=== PATIENT | female | born 1955 | race African-American/Black ===

== ENCOUNTER → 2016-07-11 | Outpatient (CLI) | payer MEDICARE, MEDICAID | LOC: OD 15:43 | PROVIDERS: ATTEND Physician Assistant | DX: M25.512 Pain in left shoulder (principal) ==

== ENCOUNTER → 2016-08-07 | Outpatient (CLI) | payer MEDICARE, MEDICAID | LOC: RAD 06:51 | PROVIDERS: ATTEND Family Medicine | DX: M54.2 Cervicalgia (principal); M47.892 Other spondylosis, cervical region; Z98.1 Arthrodesis status | CPT/HCPCS: 72125 ==

== ENCOUNTER → 2016-08-09 | Outpatient (CLI) | payer MEDICARE, MEDICAID | LOC: RAD 16:53 | PROVIDERS: ATTEND Orthopaedic Surgery | DX: M75.122 Complete rotator cuff tear or rupture of left shoulder, not specified as traumatic (principal) ==

== ENCOUNTER → 2016-09-04 | Outpatient (CLI) | payer MEDICARE, MEDICAID ==
--- NOTE | 2016-09-04 16:52 | RADIOLOGY REPORT (SQ) ---
EXAM DESCRIPTION: CT LUMBAR SPINE WITHOUT COMPLETED DATE/TIME: 09/04/2016 1:26 pm REASON FOR STUDY: LOW BACK PAIN M54.5 LOW BACK PAIN COMPARISON: None. TECHNIQUE: Axial images acquired through the lumbar spine without intravenous contrast. Images revi ewed with lung, soft tissue and bone windows. Reconstructed coronal and sagittal MPR images reviewed . All images stored on PACS. All CT scanners at this facility use dose modulation, iterative reconstruction, and/or weight based d osing when appropriate to reduce radiation dose to as low as reasonably achievable (ALARA). [facility]: Dose Right [facility]: CareDose [facility]: Dose Right [facility]: Teradose 4D [facility]: [employer]ics RADIATION DOSE: 6.61 mGy. LIMITATIONS: Hardware in the lower spine limits evaluation because of beam hardening artifact. FINDINGS: SEGMENTATION: Normal. No transitional anatomy. ALIGNMENT: Normal. VERTEBRAL BODIES: No fractures. No dislocation. No acute findings. DISCS: There is mild concentric disc bulge at L2-3. There is no significant central canal or foramin al stenosis. There is mild slightly left eccentric disc bulging at L3-4. There is no foraminal sten osis. Detail at the disc level at L4-5 and L5-S1 limited. Disc space implants at L4-5 and L5-S1. PEDICLES, TRANSVERSE PROCESSES: No fractures. No dislocation. No acute findings. FACETS, POSTERIOR ELEMENTS: Facet hypertrophy is present multiple levels. Together with the mild dis c bulging, this results in moderate central canal stenosis at L3-4. Laminectomy changes are present at L4 and L5. HARDWARE: Posterior rods secured by screws through the pedicles at L4, L5, and S1. VISUALIZED RIBS: No fractures. SOFT TISSUES: No significant or acute finding in adjacent soft tissues. OTHER: No other significant finding. IMPRESSION: Surgical changes, discs changes, spondylosis, and facet arthropathy as described. TECHNICAL DOCUMENTATION: JOB ID: [id number] Quality ID # [id number]: Final reports with documentation of one or more dose reduction techniques (e.g., Au tomated exposure control, adjustment of the mA and/or kV according to patient size, use of iterative reconstruction technique) 2010 [employer]- All Rights Reserved
== END ==
LOC: RAD 13:26
PROVIDERS: ATTEND Physician Assistant
DX: M54.5 Low back pain (principal)
CPT/HCPCS: 72131

== ENCOUNTER 2017-01-08 12:25 | Emergency (ER) | payer MEDICARE, MEDICAID ==
--- NOTE | 2017-01-08 12:47 | ER Document Report ---
ED General - General Chief Complaint: ETOH Abuse Stated Complaint: WEAKNESS Time Seen by Provider: 01/08/17 12:31 Mode of Arrival: Medic Information source: Patient Notes: 61-year-old female presents with concerns of alcohol intoxication. Patient denies any complaints herself states she drank rebound 4 beers this morning. States she normally drinks with her neighbor but her neighbor called police on her because she was "stupid" . pt wishes to go home TRAVEL OUTSIDE OF THE [place] IN LAST 30 DAYS: No - HPI Onset: Just prior to arrival Onset/Duration: Sudden Quality of pain: No pain Severity: None Pain Level: Denies Associated symptoms: None Exacerbated by: Denies Relieved by: Denies Similar symptoms previously: Yes Recently seen / treated by doctor: No - Related Data Allergies/Adverse Reactions: erythromycin base [Erythromycin Base] Allergy (Verified 02/20/15 13:25) Past Medical History - Social History Smoking Status: Never Smoker Cigarette use (# per day): No Chew tobacco use (# tins/day): No Smoking Education Provided: No Frequency of alcohol use: Heavy Family History: Arthritis, CAD, COPD, CVA, Hyperlipidemia, Hypertension, Malignancy - Past Medical History Cardiac Medical History: Reports: Hx Hypertension Endocrine Medical History: Reports: Hx Diabetes Mellitus Type 2 GI Medical History: Reports: Hx Gastroesophageal Reflux Disease Musculoskeltal Medical History: Reports Hx Arthritis, Reports Hx Musculoskeletal Trauma - Ankle fracture Psychiatric Medical History: Reports: Hx Anxiety, Hx Depression Traumatic Medical History: Reports: Hx Fractures - Ankle Past Surgical History: Reports: Hx Abdominal Surgery - gastric bypass and tummy tuck, Hx Cholecystectomy, Hx Hysterectomy, Hx Orthopedic Surgery - Backx5, right shoulder, left knee - Immunizations Hx Diphtheria, Pertussis, Tetanus Vaccination: No Review of Systems - Review of Systems Notes: REVIEW OF SYSTEMS: CONSTITUTIONAL : Denies fever, chills, or sweats. Denies recent illness. EENT: Denies eye, ear, throat, or mouth pain or symptoms. Denies nasal or sinus congestion or discharge. Denies throat, tongue, or mouth swelling or difficulty swallowing. CARDIOVASCULAR: Denies chest pain. Denies palpitations or racing or irregular heart beat. Denies ankle edema. RESPIRATORY: Denies cough, cold, or chest congestion. Denies shortness of breath, difficulty breathing, or wheezing. GASTROINTESTINAL: Denies abdominal pain or distention. Denies nausea, vomiting , or diarrhea. Denies blood in vomitus, stools, or per rectum. Denies black, tarry stools. Denies constipation. GENITOURINARY: Denies difficulty urinating, painful urination, burning, frequency, blood in urine, or discharge. FEMALE GENITOURINARY: Denies vaginal bleeding, heavy or abnormal periods, irregular periods. Denies vaginal discharge or odor. MUSCULOSKELETAL: Denies back or neck pain or stiffness. Denies joint pain or swelling. SKIN: Denies rash, lesions or sores. HEMATOLOGIC : Denies easy bruising or bleeding. LYMPHATIC: Denies swollen, enlarged glands. NEUROLOGICAL: Denies confusion or altered mental status. Denies passing out or loss of consciousness. Denies dizziness or lightheadedness. Denies headache. Denies weakness or paralysis or loss of use of either side. Denies problems with gait or speech. Denies sensory loss, numbness, or tingling. Denies seizures. PSYCHIATRIC: Denies anxiety or stress. Denies depression, suicidal ideation, or homicidal ideation. ALL OTHER SYSTEMS REVIEWED AND NEGATIVE. PHYSICAL EXAMINATION: GENERAL: Well-appearing, well-nourished and in no acute distress. HEAD: Atraumatic, normocephalic. EYES: Pupils equal round and reactive to light, extraocular movements intact, conjunctiva are normal. ENT: Nares patent, oropharynx clear without exudates. Moist mucous membranes. NECK: Normal range of motion, supple without lymphadenopathy LUNGS: Breath sounds clear to auscultation bilaterally and equal. No wheezes rales or rhonchi. HEART: Regular rate and rhythm without murmurs ABDOMEN: Soft, nontender, nondistended abdomen. No guarding, no rebound. No masses appreciated. Female : deferred Musculoskeletal: Normal range of motion, no pitting or edema. No cyanosis. NEUROLOGICAL: Cranial nerves grossly intact. Normal speech, normal gait. Normal sensory, motor exams PSYCH: Patient intoxicated SKIN: Warm, Dry, normal turgor, no rashes or lesions noted. Dictation was performed using [employer] voice recognition software Physical Exam - Vital signs Vitals: Pulse Resp BP Pulse Ox 83 20 120/83 97 01/08/17 12:30 01/08/17 12:30 01/08/17 12:30 01/08/17 12:30 Course - Re-evaluation Re-evalutation: 01/08/17 12:46 Patient is alert oriented she is moving her extremities with no difficulty she wishes to go home I asked her to at least stay for lab work since it is my job to rule out any life-threatening issue even though she just appears to be intoxicated 01/08/17 16:10 Patient at this time is quite alert oriented and clinically sober I will discharge home, they are attempting to find a ride Patient has no complaints After performing a Medical Screening Examination, I estimate there is LOW risk for INTRACRANIAL HEMORRHAGE, ISCHEMIC CVA, MALIGNANT DYSRHYTHMIA, ACUTE CORONARY SYNDROME, MENINGITIS, PULMONARY EMBOLISM, or SEPSIS thus I consider the discharge disposition reasonable. I have reevaluated this patient multiple times and no significant life threatening changes are noted. The patient and I have discussed the diagnosis and risks, and we agree with discharging home with close follow-up with the understanding that symptoms and presentations can change. We also discussed returning to the Emergency Department immediately if new or worsening symptoms occur. We have discussed the symptoms which are most concerning (e.g., changing or worsening pain, weakness, vomiting, fever) that necessitate immediate return. - Vital Signs Vital signs: Temp Pulse Resp BP Pulse Ox 97.9 F 79 20 139/99 H 98 01/08/17 15:50 01/08/17 15:50 01/08/17 15:50 01/08/17 15:50 01/08/17 15:50 - Laboratory Result Diagrams: 01/08/17 12:30 01/08/17 12:30 Laboratory results interpreted by me: 01/08/17 01/08/17 12:30 12:30 RBC 3.40 L Hgb 11.4 L Hct 33.5 L MCV 99 H MCH 33.6 H Seg Neuts % (Manual) 29 L Lymphocytes % (Manual) 57 H Abs Neuts (Manual) 1.2 L Sodium 136.4 L Discharge - Discharge Clinical Impression: Alcohol intoxication Qualifiers: Complication of substance-induced condition: uncomplicated Qualified Code(s): F10.920 - Alcohol use, unspecified with intoxication, uncomplicated Condition: Stable Disposition: HOME, SELF-CARE Instructions: Acute Alcohol Intoxication ([facility]) Referrals: EDIN JENSEN MD [Primary Care Provider] - Follow up tomorrow
[2017-01-08 13:01] LABS: HEMATOCRIT 33.5 % (36.0-47.0); HEMOGLOBIN 11.4 g/dL (12.0-15.5); HGB HCT DIFFERENCE 0.7; MEAN CORPUSCULAR HEMOGLOBIN 33.6 pg (27.0-33.4); MEAN CORPUSCULAR HGB CONC 34.1 g/dL (32.0-36.0); MEAN CORPUSCULAR VOLUME 99 fl (80-97); RED CELL DISTRIBUTION WIDTH 13.9 % (11.5-14.0); WHITE BLOOD COUNT 4.2 10^3/uL (4.0-10.5)
[2017-01-08 13:13] LABS: ALANINE AMINOTRANSFERASE 37 U/L (9-52); ALCOHOL 297 mg/dL (NONE DETECTED); ALKALINE PHOSPHATASE 77 U/L (38-126); ANION GAP 12 (5-19); ASPARTATE AMINO TRANSFERASE 32 U/L (14-36); BILIRUBIN,DIRECT 0.3 mg/dL (0.0-0.4); BILIRUBIN,TOTAL 0.6 mg/dL (0.2-1.3); BLOOD UREA NITROGEN 11 mg/dL (7-20); CALCIUM 8.8 mg/dL (8.4-10.2); CARBON DIOXIDE 24 mmol/L (22-30); CHLORIDE 100 mmol/L (98-107); CREATININE RESULT 0.58 mg/dL (0.52-1.25); GLUCOSE 82 mg/dL (75-110); POTASSIUM 4.6 mmol/L (3.6-5.0); SODIUM 136.4 mmol/L (137-145); TOTAL PROTEIN 6.5 g/dL (6.3-8.2)
[2017-01-08 13:31] LABS: BASOPHILS % (MANUAL) 1 % (0-2); EOSINOPHILS % (MANUAL) 3 % (0-6); LYMPHOCYTES % (MANUAL) 57 % (13-45); TOTAL CELLS COUNTED 100
[2017-01-08 15:55] VITALS: BP 139/99
== END 2017-01-08 15:56 | disposition home or self-care (01) ==
LOC: ER 12:25
DX: F10.120 Alcohol abuse with intoxication, uncomplicated (principal); I10 Essential (primary) hypertension; E11.9 Type 2 diabetes mellitus without complications; Z98.84 Bariatric surgery status; Z88.1 Allergy status to other antibiotic agents
CPT/HCPCS: 36415; 80053; 80307; 85025; 99284

== ENCOUNTER 2017-02-26 08:51 | Emergency (ER) | payer MEDICARE, MEDICAID ==
[2017-02-26] MEDS ORDERED: SUCRALFATE 1 GM TABLET PO ONE (09:26)
[2017-02-26] MEDS ORDERED: ONDANSETRON 4 MG TAB.RAPDIS PO ONE (09:26)
[2017-02-26] MEDS ORDERED: FAMOTIDINE 20 MG TABLET PO ONE (09:26)
--- NOTE | 2017-02-26 09:28 | ER Document Report ---
ED GI/ - General Mode of Arrival: Ambulatory Information source: Patient TRAVEL OUTSIDE OF THE [place] IN LAST 30 DAYS: No <JM ROSE - Last Filed: 02/26/17 13:10> <CONSUELO BOLAÑOS - Last Filed: 02/26/17 14:10> - General Chief Complaint: Abdominal Pain Stated Complaint: ABDOMINAL PAIN Time Seen by Provider: 02/26/17 09:26 Notes: Patient is a 61-year-old female who presents to the emergency department today with complaints of epigastric abdominal pain. Patient states she has a history of GERD and her pain today feels similar to her previous reflux. Patient eating sour patch kids upon entry into room. (JM ROSE) - Related Data Allergies/Adverse Reactions: erythromycin base [Erythromycin Base] Allergy (Verified 02/26/17 08:53) Home Medications: Current Home Medications Amlodipine Besylate 10 mg PO DAILY 02/26/17 [History] Cephalexin [Cephalexin 500 MG Capsule] 1 cap PO TID 02/26/17 [History] Duloxetine HCl 60 mg PO BID 02/26/17 [History] Metformin HCl 1,000 mg PO BID 02/26/17 [History] Past Medical History - General Information source: Patient - Social History Smoking Status: Never Smoker Cigarette use (# per day): No Chew tobacco use (# tins/day): No Frequency of alcohol use: Occasional Drug Abuse: None Lives with: Family Family History: Arthritis, CAD, COPD, CVA, Hyperlipidemia, Hypertension, Malignancy Patient has suicidal ideation: No Patient has homicidal ideation: No - Past Medical History Cardiac Medical History: Reports: Hx Hypertension Endocrine Medical History: Reports: Hx Diabetes Mellitus Type 2 GI Medical History: Reports: Hx Gastroesophageal Reflux Disease Musculoskeltal Medical History: Reports Hx Arthritis, Reports Hx Musculoskeletal Trauma - Ankle fracture Psychiatric Medical History: Reports: Hx Anxiety, Hx Depression Traumatic Medical History: Reports: Hx Fractures - Ankle Past Surgical History: Reports: Hx Abdominal Surgery - gastric bypass and tummy tuck, Hx Cholecystectomy, Hx Hysterectomy, Hx Orthopedic Surgery - Backx5, right shoulder, left knee - Immunizations Hx Diphtheria, Pertussis, Tetanus Vaccination: No <JM ROSE - Last Filed: 02/26/17 13:10> Review of Systems - Review of Systems Constitutional: No symptoms reported EENT: No symptoms reported Cardiovascular: No symptoms reported Respiratory: No symptoms reported Gastrointestinal: See HPI, Abdominal pain Genitourinary: No symptoms reported Female Genitourinary: No symptoms reported Musculoskeletal: No symptoms reported Skin: No symptoms reported Hematologic/Lymphatic: No symptoms reported Neurological/Psychological: No symptoms reported -: Yes All other systems reviewed and negative <JM ROSE - Last Filed: 02/26/17 13:10> Physical Exam <JM ROSE - Last Filed: 02/26/17 13:10> <CONSUELO BOLAÑOS - Last Filed: 02/26/17 14:10> - Vital signs Vitals: Temp Pulse Resp BP Pulse Ox 98.4 F 85 18 110/74 98 02/26/17 08:53 02/26/17 08:53 02/26/17 08:53 02/26/17 08:53 02/26/17 08:53 - Notes Notes: Physical Exam: General: Alert, appears well. HEENT: Normocephalic. Atraumatic. PERRL. Extraocular movements intact. Oropharynx clear. Neck: Supple. Non-tender. Respiratory: No respiratory distress. Clear and equal breath sounds bilaterally. Cardiovascular: Regular rate and rhythm. Abdominal: Mild epigastric tenderness to palpation. No distension. Normal Bowel Sounds. Back: Non-tender. No deformity or step off. Extremities: Moves all four extremities. Upper extremities: Normal inspection. Normal ROM. Lower extremities: Normal inspection. No edema. Normal ROM. Neurological: Normal cognition. AAOx4. Normal speech. Psychological: Normal affect. Normal Mood. Skin: Warm. Dry. Normal color. (JM ROSE) Course - Laboratory Result Diagrams: 02/26/17 10:01 02/26/17 10:01 <JM ROSE - Last Filed: 02/26/17 13:10> - Laboratory Result Diagrams: 02/26/17 10:01 02/26/17 10:01 <CONSUELO BOLAÑOS - Last Filed: 02/26/17 14:10> - Re-evaluation Re-evalutation: 02/26/17 Patient is a 61-year-old female with a history of alcohol abuse who comes in complaining of epigastric pain. Patient was given a GI cocktail and is eating sour patch kids in the room. Patient will be discharged home with medication for gastritis and is to follow-up with her primary doctor. She can also discuss referral to gastroenterology when she follows up with her doctor. Understands and agrees with plan. Stable for discharge. (CONSUELO BOLAÑOS ) - Vital Signs Vital signs: Temp Pulse Resp BP Pulse Ox 98.4 F 81 16 103/74 99 02/26/17 08:53 02/26/17 11:14 02/26/17 11:14 02/26/17 11:14 02/26/17 11:14 - Laboratory Laboratory results interpreted by me: 02/26/17 02/26/17 02/26/17 10:01 10:01 10:01 WBC 3.1 L RBC 3.37 L Hgb 11.2 L Hct 33.0 L MCV 98 H RDW 14.8 H Absolute Neutrophils 1.4 L Chloride 109 H Total Protein 5.9 L Urine Ketones TRACE H Urine Bilirubin SMALL H Urine Urobilinogen 2.0 H Ur Leukocyte Esterase MODERATE H Discharge <JM ROSE - Last Filed: 02/26/17 13:10> <CONSUELO BOLAÑOS - Last Filed: 02/26/17 14:10> - Discharge Clinical Impression: Gastritis Qualifiers: Gastritis type: unspecified gastritis Chronicity: acute Gastritis bleeding: without bleeding Qualified Code(s): K29.00 - Acute gastritis without bleeding Condition: Stable Disposition: HOME, SELF-CARE Instructions: Gastritis ([facility]), Reflux Disease (GERD) ([facility]) Additional Instructions: Please follow-up with your primary care doctor and a project financial analyst within the next 2 weeks. Prescriptions: Famotidine 20 mg PO BID #60 tablet Omeprazole 20 mg PO DAILY #30 capsule. Sucralfate [Carafate 1 gm Tablet] 1 gm PO ACHS #60 tablet Referrals: PHYLLIS COOLEY MD [Primary Care Provider] - Follow up in 3-5 days Scribe Attestation: 02/26/17 14:10 I personally performed the services described in the documentation, reviewed and edited the documentation which was dictated to the scribe in my presence, and it accurately records my words and actions. (CONSUELO BOLAÑOS) Scribe Documentation - Scribe Written by Scribe:: Gil Borges, 02/26/2017 1250 acting as scribe for :: Heather <JM ROSE - Last Filed: 02/26/17 13:10>
[2017-02-26 10:21] LABS: ABSOLUTE EOSINOPHILS # (AUTO) 0.2 10^3/uL (0.0-0.6); ABSOLUTE LYMPHOCYTES (AUTO) 1.2 10^3/uL (0.5-4.7); ABSOLUTE MONOCYTES (AUTO) 0.3 10^3/uL (0.1-1.4); ABSOLUTE NEUT (AUTO) 1.4 10^3/uL (1.7-8.2); BASOPHILS % (AUTO) 1.2 % (0-2); EOSINOPHILS % (AUTO) 5.4 % (0-6); HEMOGLOBIN 11.2 g/dL (12.0-15.5); HGB HCT DIFFERENCE 0.6; LYMPHOCYTES % (AUTO) 39.2 % (13-45); MEAN CORPUSCULAR HEMOGLOBIN 33.3 pg (27.0-33.4); MEAN CORPUSCULAR VOLUME 98 fl (80-97); MONOCYTES % (AUTO) 10.9 % (3-13); RED BLOOD COUNT 3.37 10^6/uL (3.72-5.28); RED CELL DISTRIBUTION WIDTH 14.8 % (11.5-14.0); SEGMENTED NEUTROPHILS % (AUTO) 43.3 % (42-78); WHITE BLOOD COUNT 3.1 10^3/uL (4.0-10.5)
[2017-02-26 10:29] LABS: APPEARANCE,URINE SLIGHTLY-CLOUDY; BILIRUBIN,URINE SMALL (NEGATIVE); GLUCOSE, URINE NEGATIVE (NEGATIVE); KETONES,URINE TRACE mg/dL (NEGATIVE); LEUKOCYTE ESTERASE,URINE MODERATE (NEGATIVE); NITRITE,URINE NEGATIVE (NEGATIVE); PROTEIN,URINE NEGATIVE (NEGATIVE); URINE SPECIFIC GRAVITY 1.034
[2017-02-26 10:44] LABS: ALANINE AMINOTRANSFERASE 34 U/L (9-52); ALBUMIN 3.6 g/dL (3.5-5.0); ALCOHOL < 10 mg/dL (NONE DETECTED); ALKALINE PHOSPHATASE 82 U/L (38-126); ANION GAP 11 (5-19); ASPARTATE AMINO TRANSFERASE 26 U/L (14-36); BILIRUBIN,DIRECT 0.3 mg/dL (0.0-0.4); BILIRUBIN,TOTAL 0.6 mg/dL (0.2-1.3); BLOOD UREA NITROGEN 20 mg/dL (7-20); CARBON DIOXIDE 22 mmol/L (22-30); CHLORIDE 109 mmol/L (98-107); CREATININE RESULT 0.65 mg/dL (0.52-1.25); GLUCOSE 90 mg/dL (75-110); LIPASE 182.6 U/L (23-300); POTASSIUM 4.2 mmol/L (3.6-5.0); SODIUM 141.6 mmol/L (137-145); TOTAL PROTEIN 5.9 g/dL (6.3-8.2)
[2017-02-26 11:15] VITALS: BP 103/74
== END 2017-02-26 11:18 | disposition home or self-care (01) ==
LOC: ER 08:51
DX: K29.00 Acute gastritis without bleeding (principal); K21.9 Gastro-esophageal reflux disease without esophagitis; R10.9 Unspecified abdominal pain; R10.13 Epigastric pain; Z79.899 Other long term (current) drug therapy
CPT/HCPCS: 99284; 36415; 87086; 80307; 83690; 85025; 80053; 81001; A9270 ×3; S0119

== ENCOUNTER → 2017-03-10 | Outpatient (CLI) | payer MEDICARE, MEDICAID ==
--- NOTE | 2017-03-10 11:28 | RADIOLOGY REPORT (SQ) ---
EXAM DESCRIPTION: U/S ABDOMEN LIMITED W/O DOP COMPLETED DATE/TIME: 03/10/2017 10:12 am REASON FOR STUDY: K66.8 OTHER SPECIFIED DISORDERS OF PERITONEUM K66.8 OTHER SPECIFIED DISORDERS OF PERITONEUM COMPARISON: None. TECHNIQUE: Dynamic and static grayscale images acquired of the abdomen and recorded on PACS. Additio nal selected color Doppler and spectral images recorded. LIMITATIONS: None. FINDINGS: PANCREAS: No masses. Visualized pancreatic duct normal caliber. LIVER: No masses. Echotexture normal. LIVER VASCULATURE: Normal directional flow of the main portal vein and hepatic veins. GALLBLADDER: Surgically absent. ULTRASOUND-DETECTED WHITMAN'S SIGN: Not applicable. INTRAHEPATIC DUCTS AND COMMON DUCT: CBD and intrahepatic ducts normal caliber. No filling defects. INFERIOR VENA CAVA: Normal flow. AORTA: No aneurysm. RIGHT KIDNEY: Normal size. Normal echogenicity. No solid or suspicious masses. No hydronephrosis. No calcifications. PERITONEAL AND RIGHT PLEURAL SPACE: No ascites or effusions. OTHER: In the left lateral abdomen, corresponding to a palpable area, there is and echogenic 1.5 cm r elatively superficial subcutaneous lesion. Roughly ovoid configuration. Nonspecific but potentially related to a lipoma. IMPRESSION: 1. Normal right upper quadrant structures allowing for status post remote prior cholecys tectomy. 2. Echogenic lesion in the superficial subcutaneous tissues in the region of interest, pal pable abnormality left lateral abdomen. Nonspecific. Potentially a lipoma. If clinically suspiciou s, focused MRI could be considered to further assess. TECHNICAL DOCUMENTATION: JOB ID: [id number] [employer]- All Rights Reserved
== END ==
LOC: RAD 08:25
PROVIDERS: ATTEND Physician Assistant
DX: K66.8 Other specified disorders of peritoneum (principal)
CPT/HCPCS: 76705

== ENCOUNTER → 2017-04-25 | Outpatient (CLI) | payer MEDICARE, MEDICAID ==
--- NOTE | 2017-04-25 12:23 | RADIOLOGY REPORT (SQ) ---
EXAM DESCRIPTION: CHEST PA/LAT COMPLETED DATE/TIME: 04/25/2017 8:36 am REASON FOR STUDY: R05 COUGH I88.9 LYMPHADENITIS COMPARISON: None. EXAM PARAMETERS: NUMBER OF VIEWS: two views TECHNIQUE: Digital Frontal and Lateral radiographic views of the chest acquired. RADIATION DOSE: NA LIMITATIONS: none FINDINGS: LUNGS AND PLEURA: No opacities, masses or pneumothorax. No pleural effusion. MEDIASTINUM AND HILAR STRUCTURES: No masses or contour abnormalities. HEART AND VASCULAR STRUCTURES: Heart normal size. No evidence for failure. BONES: No acute findings. HARDWARE: None in the chest. OTHER: No other significant finding. IMPRESSION: NO SIGNIFICANT RADIOGRAPHIC FINDING IN THE CHEST. TECHNICAL DOCUMENTATION: JOB ID: [id number] [employer]- All Rights Reserved
--- NOTE | 2017-04-25 13:30 | RADIOLOGY REPORT (SQ) ---
EXAM DESCRIPTION: U/S EXTREMITY NONVASCULAR COMP COMPLETED DATE/TIME: 04/25/2017 9:25 am REASON FOR STUDY: I88.9 NONSPECIFIC LYMPHADENITIS, UNSPECIFIED I88.9 NONSPECIFIC LYMPHADENITIS, UNS PECIFIED R05 COUGH COMPARISON: None. TECHNIQUE: Dynamic and static grayscale images acquired of the localized site of clinical concern an d recorded on PACS. Additional selected color Doppler and spectral images recorded. SITE OF CONCERN: Axilla. LIMITATIONS: None. FINDINGS: SKIN AND SUBCUTANEOUS TISSUES: No masses. No fluid collections. No edema. No foreign cate s. DEEP SOFT TISSUES/MUSCLES: No masses. No fluid collections. No edema. VASCULAR: No increased or decreased vascularity. No occlusions. OTHER: No other significant finding. IMPRESSION: NO SOFT TISSUE MASS, FLUID COLLECTION, OR FOREIGN BODY. TECHNICAL DOCUMENTATION: JOB ID: [id number] [employer]- All Rights Reserved
== END ==
LOC: RAD 08:36
PROVIDERS: ATTEND Physician Assistant
DX: I88.9 Nonspecific lymphadenitis, unspecified (principal); R05 Cough
CPT/HCPCS: 71046; 76881

== ENCOUNTER → 2017-07-24 | Outpatient (CLI) | payer MEDICARE, MEDICAID ==
--- NOTE | 2017-07-24 11:40 | RADIOLOGY REPORT (SQ) ---
EXAM DESCRIPTION: CHEST PA/LATERAL COMPLETED DATE/TIME: 07/24/2017 9:51 am REASON FOR STUDY: COUGH COMPARISON: 04/25/2017 EXAM PARAMETERS: NUMBER OF VIEWS: two views TECHNIQUE: Digital Frontal and Lateral radiographic views of the chest acquired. RADIATION DOSE: NA LIMITATIONS: none FINDINGS: LUNGS AND PLEURA: No opacities, masses or pneumothorax. No pleural effusion. MEDIASTINUM AND HILAR STRUCTURES: No masses or contour abnormalities. HEART AND VASCULAR STRUCTURES: Heart normal size. No evidence for failure. BONES: No acute findings. HARDWARE: None in the chest. OTHER: No other significant finding. IMPRESSION: NO SIGNIFICANT RADIOGRAPHIC FINDING IN THE CHEST. TECHNICAL DOCUMENTATION: JOB ID: [id number] [employer]- All Rights Reserved Reading location - IP/workstation name: [email or web address]
== END ==
LOC: OD 09:41
PROVIDERS: ATTEND Family Medicine
DX: R05 Cough (principal)
CPT/HCPCS: 71046

== ENCOUNTER → 2017-11-12 | Outpatient (CLI) | payer MEDICARE, MEDICAID ==
[2017-11-12 17:23] LABS: ABSOLUTE EOSINOPHILS # (AUTO) 0.1 10^3/uL (0.0-0.6); ABSOLUTE LYMPHOCYTES (AUTO) 1.6 10^3/uL (0.5-4.7); ABSOLUTE MONOCYTES (AUTO) 0.3 10^3/uL (0.1-1.4); BASOPHILS % (AUTO) 1.5 % (0-2); HEMATOCRIT 40.7 % (36.0-47.0); HEMOGLOBIN 13.4 g/dL (12.0-15.5); LYMPHOCYTES % (AUTO) 51.9 % (13-45); MEAN CORPUSCULAR HEMOGLOBIN 33.9 pg (27.0-33.4); MEAN CORPUSCULAR HGB CONC 32.9 g/dL (32.0-36.0); MEAN CORPUSCULAR VOLUME 103 fl (80-97); MONOCYTES % (AUTO) 10.2 % (3-13); PLATELET COUNT 318 10^3/uL (150-450); RED BLOOD COUNT 3.96 10^6/uL (3.72-5.28); RED CELL DISTRIBUTION WIDTH 14.6 % (11.5-14.0); SEGMENTED NEUTROPHILS % (AUTO) 33.4 % (42-78); TOTAL CELLS COUNTED % (AUTO) 100 %; WHITE BLOOD COUNT 3.1 10^3/uL (4.0-10.5)
[2017-11-12 17:43] LABS: FREE T4 (FREE THYROXINE) 1.08 ng/dL (0.78-2.19)
[2017-11-12 17:57] LABS: THYROID STIMULATING HORMONE 1.34 uIU/mL (0.47-4.68)
== END ==
LOC: OD 16:19
PROVIDERS: ATTEND Physician Assistant Medical
DX: R06.02 Shortness of breath (principal); R53.83 Other fatigue; I48.92 Unspecified atrial flutter
CPT/HCPCS: 36415; 84436; 84439; 84443; 85025

== ENCOUNTER → 2018-06-26 | Outpatient (CLI) | payer MEDICARE, MEDICAID ==
--- NOTE | 2018-06-26 09:13 | WOMENS IMAGING REPORT ---
EXAM DESCRIPTION: U/S ABDOMEN TOTAL COMPLETED DATE/TIME: 06/26/2018 7:56 am REASON FOR STUDY: R11.0 NAUSEA,R10.13 EPIGASTRIC PAIN Z12.31 ENCNTR SCREEN MAMMOGRAM FOR MALIGNANT NEOPLASM OF BARBY R11.0 NAUSEA COMPARISON: 03/10/2017 TECHNIQUE: Dynamic and static grayscale images acquired of the abdomen and recorded on PACS. Additio nal selected color Doppler and spectral images recorded. Note: Study does not meet criteria for complete doppler/duplex scan LIMITATIONS: None. FINDINGS: PANCREAS: The head of the pancreas is of normal echogenicity. The body and tail are obsc ured by overlying bowel gas. LIVER: The liver measures 16.5 cm in length, normal size. No masses. Echotexture normal. LIVER VASCULATURE: Normal directional flow of the main portal vein and hepatic veins. GALLBLADDER: Prior cholecystectomy. ULTRASOUND-DETECTED WHITMAN'S SIGN: Negative. INTRAHEPATIC DUCTS AND COMMON DUCT: CBD measures 6.6 mm in a post cholecystectomy patient. The intr ahepatic ducts normal caliber. No filling defects. INFERIOR VENA CAVA: Limited visualization due to overlying bowel gas. Normal flow. AORTA: The proximal and mid segments of the abdominal aorta are patent. The distal abdominal aorta is obscured by overlying bowel. RIGHT KIDNEY: The right kidney measures 10.6 x 3.8 x 5.1 cm, normal size. Normal echogenicity. N o solid or suspicious masses. No hydronephrosis. No calcifications. LEFT KIDNEY: The left kidney measures 8.7 x 4.8 x 4.8 cm, normal size. Normal echogenicity. No s olid or suspicious masses. No hydronephrosis. No calcifications. SPLEEN: The spleen measures 7.8 cm in length, normal size. No solid masses. PERITONEAL AND PLEURAL SPACES: No ascites or effusions. OTHER: No other significant finding. IMPRESSION: 1. The pancreas, abdominal aorta and inferior vena cava are suboptimally visualized due to overlying bowel gas. 2. Prior cholecystectomy. TECHNICAL DOCUMENTATION: JOB ID: [id number] [employer]- All Rights Reserved Reading location - IP/workstation name: [email or web address]
--- NOTE | 2018-06-26 15:43 | WOMENS IMAGING REPORT ---
EXAM DESCRIPTION: 3D SCREENING MAMMO BILAT COMPLETED DATE/TIME: 06/26/2018 7:36 am REASON FOR STUDY: Z12.31 ENCOUNTER FOR SCREENING MAMMOGRAM FOR MALIGNANT NEOPLASM OF BREAST Z12.31 ENCNTR SCREEN MAMMOGRAM FOR MALIGNANT NEOPLASM OF BARBY R11.0 NAUSEA COMPARISON: None. TECHNIQUE: Standard craniocaudal and mediolateral oblique views of each breast recorded using digita l acquisition and breast tomosynthesis. LIMITATIONS: None. FINDINGS: No masses, calcifications or architectural distortion. No areas of suspicion. Read with the assistance of CAD. .[facility] - R2 Cenova Version 1.3 .[facility] - R2 Cenova Version 2.1 .[facility] - R2 Cenova Version 2.4 .[facility] - R2 Cenova Version 2.4 .[facility] - R2 Nut Cracker Version 9.2 IMPRESSION: NORMAL MAMMOGRAM. BIRADS 1. BREAST DENSITY: b. There are scattered areas of fibroglandular density. BIRAD: 1 NEGATIVE RECOMMENDATION: ROUTINE SCREENING COMMENT: The patient has been notified of the results by letter per SA requirements. Additional no tification policies are in place for contacting patient with suspicious or incomplete findings. Quality ID #[id number]: The [employer] recommends an annual screening mammogram for women aged 40 years or over. This facility utilizes a reminder system to ensure that all patients receive reminder letters, and/or direct phone calls for appointments. This includes reminders for routine scr eening mammograms, diagnostic mammograms, or other Breast Imaging Interventions when appropriate. Th is patient will be placed in the appropriate reminder system. The [employer] (ACR) has developed recommendations for screening MRI of the breast s in certain patient populations, to be used in conjunction with mammography. Breast MRI surveillanc e may be appropriate for women with more than 20% lifetime risk of developing breast cancer as deter mined by genetic testing, significant family history of the disease, or history of mantle radiation f or Hodgkins Disease. ACR Practice Guidelines 2008. DBT Technology DBT is a type of tomographic mammography. With conventional mammography, overlapping breast tissue ma y make lesions difficult to detect, even with good compression. DBT uses an x-ray tube that rotates a round the breast, taking images at different angles. These images are then combined to create thin sl ices of the breast that the radiologist can view as a 3D reconstruction. The [employer] unit can perform full-field digital mammograms (2D imaging); or DBT (3D imaging); or both, in a combination mode that quickly performs both the mammogram and the tomosynthesis scan while the breast is still compressed. PQRS 6045F: Fluoroscopic imaging is not utilized for breast tomosynthesis. TECHNICAL DOCUMENTATION: FINDING NUMBER: (1) ASSESSMENT: (1) JOB ID: [id number] [employer]- All Rights Reserved Reading location - IP/workstation name: [email or web address]
== END ==
LOC: WI 07:32
PROVIDERS: ATTEND Physician Assistant
DX: Z12.31 Encounter for screening mammogram for malignant neoplasm of breast (principal); R11.0 Nausea
CPT/HCPCS: 76700; 77063; 77067

== ENCOUNTER → 2018-08-06 | Outpatient (CLI) | payer MEDICARE, MEDICAID ==
--- NOTE | 2018-08-06 11:33 | RADIOLOGY REPORT (SQ) ---
EXAM DESCRIPTION: CT ABD/PELVIS WITH IV ORAL COMPLETED DATE/TIME: 08/06/2018 10:46 am REASON FOR STUDY: RUQ PAIN/ EPIGASTRIC PAIN R10.11 RIGHT UPPER QUADRANT PAIN R10.13 EPIGASTRIC AMEYA N COMPARISON: 03/18/2016 TECHNIQUE: CT scan of the abdomen and pelvis performed using helical scanning technique with dynamic intravenous contrast injection. Oral contrast. Images reviewed with lung, soft tissue, and bone win dows. Reconstructed coronal and sagittal MPR images reviewed. Delayed images for evaluation of the ur inary system also acquired. All images stored on PACS. All CT scanners at this facility use dose modulation, iterative reconstruction, and/or weight based d osing when appropriate to reduce radiation dose to as low as reasonably achievable (ALARA). [facility]: Dose Right [facility]: CareDose [facility]: Dose Right [facility]: Teradose 4D [facility]: [facility] CONTRAST TYPE AND DOSE: contrast/concentration: Isovue 350.00 mg/ml; Total Contrast Delivered: 75.0 ml; Total Saline Delivered: 67.0 ml RENAL FUNCTION: Creatinine 0.7 RADIATION DOSE: CT Rad equipment meets quality standard of care and radiation dose reduction techniq ues were employed. CTDIvol: 4.5 - 5.3 mGy. DLP: 487 mGy-cm.. LIMITATIONS: None. FINDINGS: LOWER CHEST: No significant findings. No nodules or infiltrates. LIVER: Normal size. No masses. No dilated ducts. SPLEEN: Normal size. No focal lesions. PANCREAS: No masses. No significant calcifications. No adjacent inflammation or peripancreatic fluid collections. Pancreatic duct not dilated. GALLBLADDER: Surgically absent. ADRENAL GLANDS: No significant masses or asymmetry. RIGHT KIDNEY AND URETER: No solid masses. No significant calcifications. No hydronephrosis or hyd roureter. LEFT KIDNEY AND URETER: No solid masses. No significant calcifications. No hydronephrosis or hydr oureter. AORTA AND VESSELS: No aneurysm. No dissection. Renal arteries, SMA, celiac without stenosis. RETROPERITONEUM: No retroperitoneal adenopathy, hemorrhage or masses. BOWEL AND PERITONEAL CAVITY: Gastric bypass. No masses or inflammatory changes. No free fluid or per itoneal masses. APPENDIX: Normal. PELVIS: No mass. No free fluid. Normal bladder. ABDOMINAL WALL: No masses. No hernias. BONES: Posterior rods from L4-S1 with screws through the pedicles. OTHER: No other significant finding. IMPRESSION: No acute abnormality in the abdomen or pelvis. Findings as described. TECHNICAL DOCUMENTATION: JOB ID: [id number] Quality ID # [id number]: Final reports with documentation of one or more dose reduction techniques (e.g., Au tomated exposure control, adjustment of the mA and/or kV according to patient size, use of iterative reconstruction technique) 2010 [employer]- All Rights Reserved Reading location - IP/workstation name: [email or web address]
== END ==
LOC: RAD 07:48
PROVIDERS: ATTEND Internal Medicine Gastroenterology
DX: R10.11 Right upper quadrant pain (principal); R10.13 Epigastric pain
CPT/HCPCS: 74177; 82565

== ENCOUNTER → 2019-03-19 | Outpatient (CLI) | payer MEDICARE, MEDICAID ==
[2019-03-19 15:15] LABS: ABSOLUTE EOSINOPHILS # (AUTO) 0.2 10^3/uL (0.0-0.6); ABSOLUTE LYMPHOCYTES (AUTO) 1.7 10^3/uL (0.5-4.7); ABSOLUTE MONOCYTES (AUTO) 0.3 10^3/uL (0.1-1.4); ABSOLUTE NEUT (AUTO) 1.2 10^3/uL (1.7-8.2); BASOPHILS % (AUTO) 1.3 % (0-2); EOSINOPHILS % (AUTO) 5.2 % (0-6); HEMATOCRIT 37.5 % (36.0-47.0); HEMOGLOBIN 12.8 g/dL (12.0-15.5); LYMPHOCYTES % (AUTO) 49.8 % (13-45); MEAN CORPUSCULAR HEMOGLOBIN 33.9 pg (27.0-33.4); MEAN CORPUSCULAR HGB CONC 34.1 g/dL (32.0-36.0); MEAN CORPUSCULAR VOLUME 99 fl (80-97); MONOCYTES % (AUTO) 8.9 % (3-13); PLATELET COUNT 228 10^3/uL (150-450); RED BLOOD COUNT 3.77 10^6/uL (3.72-5.28); RED CELL DISTRIBUTION WIDTH 14.9 % (11.5-14.0); SEGMENTED NEUTROPHILS % (AUTO) 34.8 % (42-78); TOTAL CELLS COUNTED % (AUTO) 100 %; WHITE BLOOD COUNT 3.3 10^3/uL (4.0-10.5)
[2019-03-19 15:36] LABS: ALBUMIN 4.4 g/dL (3.5-5.0); ALKALINE PHOSPHATASE 83 U/L (38-126); ANION GAP 8 (5-19); ASPARTATE AMINO TRANSFERASE 25 U/L (14-36); BILIRUBIN,DIRECT 0.1 mg/dL (0.0-0.4); BILIRUBIN,TOTAL 0.5 mg/dL (0.2-1.3); BLOOD UREA NITROGEN 15 mg/dL (7-20); CALCIUM 9.7 mg/dL (8.4-10.2); CARBON DIOXIDE 28 mmol/L (22-30); CHLORIDE 103 mmol/L (98-107); GLUCOSE 111 mg/dL (75-110); POTASSIUM 4.3 mmol/L (3.6-5.0); TOTAL PROTEIN 7.8 g/dL (6.3-8.2)
--- NOTE | 2019-03-19 15:51 | RADIOLOGY REPORT (SQ) ---
EXAM DESCRIPTION: CHEST 2 VIEWS COMPLETED DATE/TIME: 03/19/2019 3:15 pm REASON FOR STUDY: R05 COUGH COMPARISON: 04/15/2017 EXAM PARAMETERS: NUMBER OF VIEWS: two views TECHNIQUE: Digital Frontal and Lateral radiographic views of the chest acquired. RADIATION DOSE: NA LIMITATIONS: none FINDINGS: LUNGS AND PLEURA: No opacities, masses or pneumothorax. No pleural effusion. MEDIASTINUM AND HILAR STRUCTURES: No masses or contour abnormalities. HEART AND VASCULAR STRUCTURES: Heart normal size. No evidence for failure. BONES: No acute findings. HARDWARE: Cervical fusion hardware. Cholecystectomy clips. OTHER: No other significant finding. IMPRESSION: NO ACUTE RADIOGRAPHIC FINDING IN THE CHEST. TECHNICAL DOCUMENTATION: JOB ID: [id number] [employer]- All Rights Reserved Reading location - IP/workstation name: [email or web address]
== END ==
LOC: RAD 14:49
PROVIDERS: ATTEND Physician Assistant
DX: R05 Cough (principal)
CPT/HCPCS: 36415; 71046; 80053; 85025

== ENCOUNTER 2019-07-01 22:57 | Emergency (ER) | payer MEDICARE, MEDICAID ==
[2019-07-01] MEDS ORDERED: IBUPROFEN 600 MG TABLET PO ONE (23:01)
[2019-07-01] MEDS ORDERED: CEPHALEXIN 500 MG CAPSULE PO ONE (23:01)
[2019-07-01] MEDS ORDERED: HYDROCODONE/ACETAMINOPHEN 5-325 MG TABLET PO ONE (23:01)
[2019-07-01] MEDS ORDERED: DIPH/PERTUSS(ACELL)/TETANUS VAC/PF 0.5 ML SYR (>=10YO) IM ONE (23:01)
--- NOTE | 2019-07-01 23:03 | ER Document Report ---
ED Medical Screen (RME) - General Chief Complaint: Hand Injury Stated Complaint: RIGHT HAND INJURY Time Seen by Provider: 07/01/19 23:00 Primary Care Provider: OLGA LUO MD [Primary Care Provider] - Follow up as needed Notes: HPI: 63-year-old female who is left-hand dominant presenting with a right fifth finger injury that occurred yesterday evening. Patient states the fifth finger was crushed in a door when her son close the door on it. She complains of a laceration over the volar aspect of the finger with significant pain. She reports difficulty flexing and extending the finger now because of swelling. Patient states she is not up-to-date on her tetanus vaccination. Patient denies other complaints I have greeted and performed a rapid initial assessment of this patient. A comprehensive ED assessment and evaluation of the patient, analysis of test results and completion of the medical decision making process will be conducted by additional ED providers PHYSICAL EXAMINATION: GENERAL: Well-appearing, well-nourished and in moderate acute distress. HEAD: Atraumatic, normocephalic. EXTREMITIES: Moderate soft tissue swelling to the right fifth finger. There is a visible laceration on the volar pad over the medial phalange and proximal phalange of the right fifth finger. Some difficulty with flexion extension. NEUROLOGICAL: No focal neurological deficits. Moves all extremities spontaneou sly and on command. PSYCH: Normal mood, normal affect. SKIN: Warm, Dry, normal turgor TRAVEL OUTSIDE OF THE [place] IN LAST 30 DAYS: No - Related Data Allergies/Adverse Reactions: erythromycin base [Erythromycin Base] Allergy (Verified 02/26/17 08:53) Past Medical History - Past Medical History Cardiac Medical History: Reports: Hx Hypertension Endocrine Medical History: Reports: Hx Diabetes Mellitus Type 2 Renal/ Medical History: Denies: Hx Peritoneal Dialysis GI Medical History: Reports: Hx Gastroesophageal Reflux Disease Musculoskeltal Medical History: Reports Hx Arthritis, Reports Hx Musculoskeletal Trauma - Ankle fracture Psychiatric Medical History: Reports: Hx Anxiety, Hx Depression Traumatic Medical History: Reports: Hx Fractures - Ankle Past Surgical History: Reports: Hx Abdominal Surgery - gastric bypass and tummy tuck, Hx Cholecystectomy, Hx Hysterectomy, Hx Orthopedic Surgery - Backx5, right shoulder, left knee - Immunizations Hx Diphtheria, Pertussis, Tetanus Vaccination: No Doctor's Discharge - Discharge Referrals: OLGA LUO MD [Primary Care Provider] - Follow up as needed
--- NOTE | 2019-07-01 23:28 | RADIOLOGY REPORT (SQ) ---
EXAM DESCRIPTION: XR FINGERS COMPLETED DATE/TME: 07/01/2019 23:00 CLINICAL HISTORY: 63 years, Female, crushed 5th finger in door COMPARISON: None. NUMBER OF VIEWS: 3 TECHNIQUE: 3 view right hand LIMITATIONS: None. FINDINGS: Comminuted displaced fracture of the proximal portion of the middle phalanx of the fifth digit. There are overriding fracture fragments with extensive soft tissue swelling. No dislocation. Osteopenia. Degenerative change of the hand and wrist. IMPRESSION: Comminuted, displaced fracture of the fifth digit as above copyright 2010 [employer]- All Rights Reserved
--- NOTE | 2019-07-02 00:36 | ER Document Report ---
ED General - General Chief Complaint: Finger Injury Stated Complaint: RIGHT HAND INJURY Time Seen by Provider: 07/01/19 23:00 Primary Care Provider: OLGA LUO MD [ACTIVE STAFF] - Follow up as needed RIGOBERTO HINOJOSA JR, DO [ACTIVE PROVISIONAL STAFF] - Follow up as needed Mode of Arrival: Ambulatory Information source: Patient TRAVEL OUTSIDE OF THE [place] IN LAST 30 DAYS: No - HPI Onset: Other - Friday Night around 11pm Onset/Duration: Sudden Quality of pain: Achy, Throbbing Severity: Severe Pain Level: 5 Associated symptoms: None Exacerbated by: Movement - of her right 5th finger Relieved by: Other - keeping her right 5th finger still Similar symptoms previously: No Recently seen / treated by doctor: No Notes: 63 year old female with a history of HTN, DM, GERD here for evaluation of a right 5th finger injury. The patient slammed her right 5th finger in a door on a ccident on Friday around 11pm. The patient did not come to the ER until now due to the not wanting to be out and about during the COVID19 pandemic. The patient says her finger has swollen significantly and the pain has worsened since the accident. The patient is unsure of her Tetanus status. - Related Data Allergies/Adverse Reactions: erythromycin base [Erythromycin Base] Allergy (Verified 02/26/17 08:53) Home Medications: metformin, bp med, 3 differnt antidepression, acid reflux meds. Past Medical History - General Information source: Patient - Social History Smoking Status: Never Smoker Frequency of alcohol use: Occasional Drug Abuse: None Lives with: Family Family History: Arthritis, CAD, COPD, CVA, Hyperlipidemia, Hypertension, Malignancy Patient has suicidal ideation: No Patient has homicidal ideation: No - Past Medical History Cardiac Medical History: Reports: Hx Hypertension Endocrine Medical History: Reports: Hx Diabetes Mellitus Type 2 Renal/ Medical History: Denies: Hx Peritoneal Dialysis GI Medical History: Reports: Hx Gastroesophageal Reflux Disease Musculoskeletal Medical History: Reports Hx Arthritis, Reports Hx Musculoskeletal Trauma - Ankle fracture Psychiatric Medical History: Reports: Hx Anxiety, Hx Depression Traumatic Medical History: Reports: Hx Fractures - Ankle Past Surgical History: Reports: Hx Abdominal Surgery - gastric bypass and tummy tuck, Hx Cholecystectomy, Hx Hysterectomy, Hx Orthopedic Surgery - Backx5, right shoulder, left knee - Immunizations Hx Diphtheria, Pertussis, Tetanus Vaccination: No Review of Systems - Review of Systems Constitutional: No symptoms reported EENT: No symptoms reported Cardiovascular: No symptoms reported Respiratory: No symptoms reported Gastrointestinal: No symptoms reported Genitourinary: No symptoms reported Female Genitourinary: No symptoms reported Musculoskeletal: Other - Swelling of right 5th finger with obvious deformity. Right 5th finger with lacerations on the lateral and medial sides of her 5th finger which have started to heal already. Skin: Other - Lacerations to both sides of right 5th fingers Physical Exam - Vital signs Vitals: Temp Pulse Resp BP Pulse Ox 98.3 F 97 20 103/71 95 07/01/19 23:01 07/01/19 23:01 07/01/19 23:01 07/01/19 23:01 07/01/19 23:01 - Notes Notes: GENERAL: Well-appearing, well-nourished and in no acute distress. HEAD: Atraumatic, normocephalic. EYES: Pupils equal round and reactive to light, extraocular movements intact, sclera anicteric, conjunctiva are normal. ENT: TMs normal, nares patent, oropharynx clear without exudates. Moist mucous membranes. NECK: Normal range of motion, supple without lymphadenopathy or JVD. LUNGS: Breath sounds clear to auscultation bilaterally and equal. No wheezes rales or rhonchi. HEART: Regular rate and rhythm without murmurs, rubs or gallops. ABDOMEN: Soft, nontender, normoactive bowel sounds. No guarding, no rebound. No masses appreciated. EXTREMITIES: Right 5th digit is deformed and swollen with lacerations along the sides of her fingers which are starting to heal by secondary intention. Normal range of motion, no pitting or edema. No clubbing or cyanosis. NEUROLOGICAL: Cranial nerves II through XII grossly intact. Normal speech, normal gait. PSYCH: Normal mood, normal affect. SKIN: Healing lacerations along right 5th finger which was slammed in a door. Warm, Dry, normal turgor, no rashes or lesions noted. Course - Re-evaluation Re-evalutation: 07/02/19 01:37 The patient's right 5th finger was slammed in a door. She waited over 24 hours to be evaluated and at this point her wounds have already started to heal. Patient's lacerations along the sides of her fingers cannot repaired at this point due to infection risk. I performed a digital block and attempted to better align her displaced distal phalanx fracture but I was unable to do so due to the amount of swelling. I tried to consult Dr. Hinojosa of Orthopedics twice but he did not grain picker his cell phone. Voicemails were left for him. The patient was told to follow up with Dr. Hinojosa's office later today in his clinic due to fact her finger fracture is completely displaced. - Vital Signs Vital signs: Temp Pulse Resp BP Pulse Ox 98.3 F 97 20 103/71 95 07/01/19 23:01 07/01/19 23:01 07/01/19 23:01 07/01/19 23:01 07/01/19 23:01 - Diagnostic Test Radiology reviewed: Image reviewed, Reports reviewed Procedures - Joint Reduction/Fracture Care Right Distal Finger 5th digit Fracture: Closed Manipulation comment: Attempted to reduce/realign right 5th distal phalanx without success Reduction attempts: 1 Complications: No Notes: 07/02/19 01:53 Patient had a digital block with 1%cc on both sided of finger (about 1cc on each side) Discharge - Discharge Clinical Impression: Displaced fracture of distal phalanx of finger of right hand Condition: Stable Disposition: HOME, SELF-CARE Instructions: Chris Taping (fingers) ([facility]), Fractured Finger ([facility]) Additional Instructions: Use Tylenol and Motrin for pain. Use Lindsay for pain not well controlled. Follow up with Dr. Hinojosa in his office later today for your displaced finger fracture. Tell Dr. Hinojosa the injury happened over 24 hours before your ER visit so your wounds were not sutured. Prescriptions: Cephalexin Monohydrate [Keflex 500 mg Capsule] 500 mg PO Q12 7 Days #14 capsule Cephalexin Monohydrate [Keflex 500 mg Capsule] 500 mg PO Q12 7 Days #14 capsule Referrals: OLGA LUO MD [ACTIVE STAFF] - Follow up as needed RIGOBERTO HINOJOSA JR, DO [ACTIVE PROVISIONAL STAFF] - Follow up as needed
[2019-07-02] MEDS ORDERED: HYDROCODONE/ACETAMINOPHEN 5-325 MG (6 TAB/ER DISP) PO PRN (01:31)
[2019-07-02 01:55] VITALS: BP 111/72
== END 2019-07-02 01:55 | disposition home or self-care (01) ==
LOC: ER 22:57
PROC: 0PSTXZZ Reposition Right Finger Phalanx, External Approach (ICD-10-PCS; principal; 2019-07-01)
DX: S62.636A Displaced fracture of distal phalanx of right little finger, initial encounter for closed fracture (principal); W23.0XXA Caught, crushed, jammed, or pinched between moving objects, initial encounter; I10 Essential (primary) hypertension; E11.9 Type 2 diabetes mellitus without complications; K21.9 Gastro-esophageal reflux disease without esophagitis; Z88.1 Allergy status to other antibiotic agents
CPT/HCPCS: 99283; 90471; 73140; 90715; 26725; A9270 ×4

== ENCOUNTER 2019-07-06 08:56 | Day surgery (SDC) | payer MEDICARE, MEDICAID ==
[~2019-07-06 08:56] MED LIST: ACETAMINOPHEN 325 MG TABLET ONE; ACETAMINOPHEN 325 MG TABLET PO PRN; CEFAZOLIN SODIUM 2 GM in DEXTROSE 5%-WATER 100 ML IV PRN; FENTANYL CITRATE INJ/PF 100 MCG/2 ML AMPUL ONE; MIDAZOLAM 2 MG/2 ML INJ ONE; ONDANSETRON HCL INJ/PF 4 MG/2 ML SDV ONE; OXYCODONE HCL SR 10 MG TABLET PO ONE; OXYCODONE HCL SR 10 MG TABLET PO PRN; PROPOFOL INJ 200 MG/20 ML VIAL IV ONE
--- NOTE | 2019-07-06 10:08 | RADIOLOGY REPORT (SQ) ---
EXAM DESCRIPTION: CHEST SINGLE VIEW COMPLETED DATE/TIME: 07/06/2019 9:54 am REASON FOR STUDY: Pre Op COMPARISON: None. NUMBER OF VIEWS: One view. TECHNIQUE: Single frontal radiographic view of the chest acquired. LIMITATIONS: None. FINDINGS: LUNGS AND PLEURA: No opacities, masses or pneumothorax. No pleural effusion. MEDIASTINUM AND HILAR STRUCTURES: No masses. Contour normal. HEART AND VASCULAR STRUCTURES: Heart normal in size. Normal vasculature. BONES: No acute findings. HARDWARE: None in the chest. OTHER: No other significant finding. IMPRESSION: NO SIGNIFICANT RADIOGRAPHIC FINDING IN THE CHEST. TECHNICAL DOCUMENTATION: JOB ID: [id number] 2010 [employer]- All Rights Reserved Reading location - IP/workstation name: [email or web address]
[2019-07-06 10:48] LABS: ABSOLUTE EOSINOPHILS # (AUTO) 0.1 10^3/uL (0.0-0.6); ABSOLUTE LYMPHOCYTES (AUTO) 1.5 10^3/uL (0.5-4.7); ABSOLUTE MONOCYTES (AUTO) 0.5 10^3/uL (0.1-1.4); ABSOLUTE NEUT (AUTO) 3.4 10^3/uL (1.7-8.2); BASOPHILS % (AUTO) 0.9 % (0-2); EOSINOPHILS % (AUTO) 2.3 % (0-6); HEMATOCRIT 33.9 % (36.0-47.0); HEMOGLOBIN 11.5 g/dL (12.0-15.5); LYMPHOCYTES % (AUTO) 26.2 % (13-45); MEAN CORPUSCULAR HEMOGLOBIN 35.3 pg (27.0-33.4); MEAN CORPUSCULAR VOLUME 104 fl (80-97); MONOCYTES % (AUTO) 9.7 % (3-13); PLATELET COUNT 305 10^3/uL (150-450); RED BLOOD COUNT 3.27 10^6/uL (3.72-5.28); RED CELL DISTRIBUTION WIDTH 15.4 % (11.5-14.0); SEGMENTED NEUTROPHILS % (AUTO) 60.9 % (42-78); TOTAL CELLS COUNTED % (AUTO) 100 %; WHITE BLOOD COUNT 5.6 10^3/uL (4.0-10.5)
[2019-07-06 10:58] LABS: ANION GAP 8 (5-19); BLOOD UREA NITROGEN 14 mg/dL (7-20); CALCIUM 8.9 mg/dL (8.4-10.2); CARBON DIOXIDE 26 mmol/L (22-30); CHLORIDE 105 mmol/L (98-107); GLUCOSE 83 mg/dL (75-110); POTASSIUM 4.2 mmol/L (3.6-5.0)
[2019-07-06] MEDS ORDERED: BUPIVACAINE HCL 0.5 % INJ/PF 30 ML SDV ONE (11:01)
[2019-07-06] MEDS ORDERED: LIDOCAINE 1% INJ-PF (10 MG/ML) 30 ML SDV ONE (11:01)
[2019-07-06] MEDS ORDERED: MORPHINE SULFATE 10 MG/ML INJ IV PRN (12:24)
[2019-07-06] MEDS ORDERED: PROMETHAZINE HCL INJ 25 MG/1 ML VIAL IV PRN ×2 (12:24)
[2019-07-06] MEDS ORDERED: FENTANYL CITRATE INJ/PF 100 MCG/2 ML AMPUL IV PRN ×3 (12:24)
[2019-07-06] MEDS ORDERED: DIPHENHYDRAMINE HCL 50 MG/ML VIAL IV PRN (12:24)
[2019-07-06] MEDS ORDERED: MEPERIDINE HCL/PF INJ 25 MG/1 ML DISP.SYRIN IV PRN (12:24)
[2019-07-06] MEDS ORDERED: ONDANSETRON HCL INJ/PF 4 MG/2 ML SDV IV PRN (12:24)
--- NOTE | 2019-07-06 12:36 | EKG REPORT ---
SEVERITY:- ABNORMAL ECG - SINUS RHYTHM NONSPECIFIC T ABNORMALITIES, ANTERIOR LEADS,NO OLD EKG TO COMPARE : Confirmed by: Jose G Hassan MD 06-Jul-2019 12:35:58
--- NOTE | 2019-07-06 13:05 | Operative Report ---
Operative Report DATE OF SURGERY: 07/06/19 PREOPERATIVE DIAGNOSIS: Right fifth finger middle phalanx fracture. POSTOPERATIVE DIAGNOSIS: Right fifth finger middle phalanx fracture. OPERATION: Close reduction percutaneous pinning right fifth digit middle phalanx fracture, I&D of soft tissue wound. SURGEON: RIGOBERTO HINOJOSA JR ANESTHESIA: Moderate Sedation COMPLICATIONS: None PROCEDURE: The patient was brought to the operating suite and laid supine on the operating table. 2 g Ancef were provided. The patient underwent moderate sedation. They were given a local block under standard sterile procedure. After this their right upper extremity was prepped and draped in standard sterile fashion. A timeout was performed followed by fluoroscopic evaluation of the fracture. The local soft tissue was severely swollen and macerated due to the crush nature of the injury. This was explored and found to be ultimately closed. There is no appreciable open fracture. We thoroughly irrigated and washed the soft tissue injury and debrided nonviable tissue. Additionally the fracture was found to be comminuted with a very small proximal fragment at the base of the middle phalanx. Due to this open reduction internal fixation with plate and screws was not deemed appropriate. Cross pinning of the middle phalanx was considered but due to the comminution I was concerned that stabilization with small cross pins would not be adequate. Due to this we proceeded with transarticular pinning. Under fluoroscopic guidance a long pin was placed from the distal phalanx to the base of the proximal phalanx and this achieved excellent reduction. Following this a cross pin was able to be placed from the base of the middle phalanx to the distal condyle. The exposed K wires were then bent appropriately, Jurgan beads were placed, the K wires were then cut and final fluoroscopy was performed. I then placed Xeroform and a sterile dressing followed by a well- padded ulnar gutter splint with plaster. The patient was then awakened from anesthesia and taken to the PACU in stable condition.
--- NOTE | 2019-07-06 13:45 | RADIOLOGY REPORT (SQ) ---
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 EXAM PARAMETERS: NUMBER OF VIEWS: Three views. TECHNIQUE: AP, lateral and oblique radiographic images acquired of the right hand. LIMITATIONS: None. FINDINGS: MINERALIZATION: Normal. BONES: Pins are present in the 5th digit. Bone detail is poor. JOINTS: No effusions. SOFT TISSUES: No soft tissue swelling. No foreign body. OTHER: No other significant finding. IMPRESSION: Status post pinning of the 5th digit. Bone detail is poor. TECHNICAL DOCUMENTATION: JOB ID: [id number] 2010 [employer]- All Rights Reserved Reading location - IP/workstation name: [email or web address]
--- NOTE | 2019-07-06 14:02 | RADIOLOGY REPORT (SQ) ---
EXAM DESCRIPTION: NO CHG FLUORO; FINGER RIGHT COMPLETED DATE/TIME: 07/06/2019 1:30 pm REASON FOR STUDY: PINNING RIGHT 5TH FINGER/PINKY ASSISTED WITH FLUOROSCOPY IN OR COMPARISON: None. FLUOROSCOPY TIME: 24 seconds 3 Images saved to PACS LIMITATIONS: None. PROCEDURE: Pinning of the right 5th finger FINDINGS: Images from fluoro document placement of 2 pins in the right 5th digit IMPRESSION: Pinning of the right 5th finger. Refer to operative note for further information. COMMENT: PQRS 6045F: Fluoroscopy time of the procedure is documented in the report. TECHNICAL DOCUMENTATION: JOB ID: [id number] 2010 [employer]- All Rights Reserved Reading location - IP/workstation name: [email or web address]
--- NOTE | 2019-07-06 14:02 | RADIOLOGY REPORT (SQ) ---
EXAM DESCRIPTION: NO CHG FLUORO; FINGER RIGHT COMPLETED DATE/TIME: 07/06/2019 1:30 pm REASON FOR STUDY: PINNING RIGHT 5TH FINGER/PINKY ASSISTED WITH FLUOROSCOPY IN OR COMPARISON: None. FLUOROSCOPY TIME: 24 seconds 3 Images saved to PACS LIMITATIONS: None. PROCEDURE: Pinning of the right 5th finger FINDINGS: Images from fluoro document placement of 2 pins in the right 5th digit IMPRESSION: Pinning of the right 5th finger. Refer to operative note for further information. COMMENT: PQRS 6045F: Fluoroscopy time of the procedure is documented in the report. TECHNICAL DOCUMENTATION: JOB ID: [id number] 2010 [employer]- All Rights Reserved Reading location - IP/workstation name: [email or web address]
[2019-07-06 15:02] VITALS: BP 112/69
== END 2019-07-06 14:25 | disposition home or self-care (01) ==
LOC: OROUT 08:56
PROVIDERS: ATTEND Orthopaedic Surgery
DX: Z79.899 Other long term (current) drug therapy (principal); S62.626A Displaced fracture of middle phalanx of right little finger, initial encounter for closed fracture; X58.XXXA Exposure to other specified factors, initial encounter; Z88.1 Allergy status to other antibiotic agents; I10 Essential (primary) hypertension; E11.9 Type 2 diabetes mellitus without complications; I48.91 Unspecified atrial fibrillation
CPT/HCPCS: 36415; 85025; 80048; 71045; 73140; 73120; 93005; 93010; 26727; C1713 ×2; A9270 ×2; J2250; J3490; J0690; J3010; J2405; J7060; J2704

== ENCOUNTER → 2019-09-22 | Outpatient (CLI) | payer MEDICARE, MEDICAID ==
--- NOTE | 2019-09-22 14:00 | RADIOLOGY REPORT (SQ) ---
EXAM DESCRIPTION: CHEST PA/LATERAL IMAGES COMPLETED DATE/TIME: 09/22/2019 1:42 pm REASON FOR STUDY: COUGH COMPARISON: AP view of the chest from 07/06/2019. EXAM PARAMETERS: NUMBER OF VIEWS: Two views. TECHNIQUE: PA and lateral views of the chest were obtained. RADIATION DOSE: NA. LIMITATIONS: None. FINDINGS: LUNGS AND PLEURA: No consolidation, pleural effusion or pneumothorax. MEDIASTINUM AND HILAR STRUCTURES: No mediastinal or hilar contour abnormality. HEART AND VASCULAR STRUCTURES: The cardiac silhouette and pulmonary vasculature are within normal carl its. BONES: No acute findings. HARDWARE: ACDF hardware and surgical clips in the upper abdomen. OTHER: No other finding. IMPRESSION: No acute cardiopulmonary process. TECHNICAL DOCUMENTATION: JOB ID: [id number] 2010 [employer]- All Rights Reserved Reading location - IP/workstation name: [email or web address]
== END ==
LOC: OD 13:26
PROVIDERS: ATTEND Physician Assistant
DX: R05 Cough (principal)
CPT/HCPCS: 71046

== ENCOUNTER → 2020-04-28 | Outpatient (CLI) | payer MEDICARE, MEDICAID ==
--- NOTE | 2020-04-28 11:30 | RADIOLOGY REPORT (SQ) ---
EXAM DESCRIPTION: CT HEAD WITHOUT IMAGES COMPLETED DATE/TIME: 04/28/2020 9:53 am REASON FOR STUDY: R29.6 REPEATED FALLS R29.6 REPEATED FALLS M54.12 RADICULOPATHY, CERVICAL REGION TECHNIQUE: Axial images acquired through the brain without intravenous contrast. Images reviewed wi th bone, brain and subdural windows. Additional sagittal and coronal reconstructions were generated. Images stored on PACS. All CT scanners at this facility use dose modulation, iterative reconstruction, and/or weight based d osing when appropriate to reduce radiation dose to as low as reasonably achievable (ALARA). [facility]: Dose Right [facility]: CareDose [facility]: Dose Right [facility]: Teradose 4D [facility]: [place] RADIATION DOSE: CT Rad equipment meets quality standard of care and radiation dose reduction techniq ues were employed. CTDIvol: 48.9 mGy. DLP: 861 mGy-cm. mGy. LIMITATIONS: None. FINDINGS: VENTRICLES: Normal size and contour. CEREBRUM: No masses. No hemorrhage. No midline shift. No evidence for acute infarction. Normal gra y/white matter differentiation. No areas of low density in the white matter. CEREBELLUM: No masses. No hemorrhage. No alteration of density. No evidence for acute infarction. EXTRAAXIAL SPACES: No fluid collections. No masses. ORBITS AND GLOBE: No intra- or extraconal masses. Normal contour of globe without masses. CALVARIUM: No fracture. Hyperostosis frontalis interna. PARANASAL SINUSES: No fluid or mucosal thickening. SOFT TISSUES: No mass or hematoma. OTHER: No other significant finding. IMPRESSION: NO ACUTE INTRACRANIAL IMAGING FINDINGS. EVIDENCE OF ACUTE STROKE: NO. COMMENT: Quality ID # [id number]: Final reports with documentation of one or more dose reduction techniques (e.g., Automated exposure control, adjustment of the mA and/or kV according to patient size, use of iterative reconstruction technique) TECHNICAL DOCUMENTATION: JOB ID: [id number] 2010 [employer]- All Rights Reserved Reading location - IP/workstation name: [email or web address]
--- NOTE | 2020-04-28 13:06 | RADIOLOGY REPORT (SQ) ---
EXAM DESCRIPTION: MRI CERVICAL SPINE WITHOUT IMAGES COMPLETED DATE/TIME: 04/28/2020 11:38 am REASON FOR STUDY: (M54.12)RADICULOPATHY, CERVICAL REGION R29.6 REPEATED FALLS M54.12 RADICULOPATHY , CERVICAL REGION COMPARISON: CT C-spine 08/07/2016 TECHNIQUE: Sagittal and Axial imaging includes T1, T2, STIR and gradient echo sequences. LIMITATIONS: None. FINDINGS: ALIGNMENT: Normal. VERTEBRAE: Intact. BONE MARROW: Normal. No marrow replacement or reactive changes. DISCS: Normal. No significant abnormal signal or loss of height. HARDWARE: Anterior plate at C5-6 with screws into the vertebral bodies. CORD AND BASE OF BRAIN: Normal in size and signal intensity. SOFT TISSUES: No soft tissue masses. C1-C2: No significant spinal stenosis. C2-C3: Shallow left paracentral disc/ osteophyte complex with no central canal or foraminal stenosis. C3-C4: Broad-based disc/osteophyte complex narrows the anterior CSF space does not deform the cord. No significant foraminal stenoses. C4-C5: Broad-based disc/osteophyte complex asymmetrical to the right. There is slight flattening of the right side of the cord. Mild right foraminal narrowing. C5-C6: Broad-based disc/osteophyte complex narrows the anterior CSF space. No significant foraminal stenoses. C6-C7: No significant spinal stenosis or exit foraminal stenosis. C7-T1: No significant spinal stenosis or exit foraminal stenosis. UPPER THORACIC: Incompletely imaged. No significant spinal stenosis or exit foraminal stenosis. OTHER: No other significant finding. IMPRESSION: Prior ACDF at C5-6. Disc/osteophyte complexes at several levels as described. Most sig nificant findings appear to be at C4-5 where there is slight flattening of the right side of the cord and mild right foraminal stenosis. TECHNICAL DOCUMENTATION: JOB ID: [id number] 2010 [employer]- All Rights Reserved Reading location - IP/workstation name: [email or web address]
== END ==
LOC: RAD 09:25
PROVIDERS: ATTEND Physician Assistant
DX: R29.6 Repeated falls (principal); M54.12 Radiculopathy, cervical region; M96.1 Postlaminectomy syndrome, not elsewhere classified
CPT/HCPCS: 70450; 72141